=== PATIENT | female | born 1970 | race Caucasian/White ===

== ENCOUNTER → 2016-09-21 16:50 | Outpatient (CLI) | payer MEDICAID ==
[2014-05-18 11:28] VITALS: BMI 26.5
[~2016-09-21 16:50] MED LIST: DEMEROL50 MG PO; ESTRACE2 MG PO; PHENERGAN25 M1 PO; ZANTAC150 MG PO
== END | disposition home or self-care (01) ==
LOC: D.MAMMO 14:00
DX: R92.8 Other abnormal and inconclusive findings on diagnostic imaging of breast (principal)

== ENCOUNTER → 2016-10-22 07:52 | Outpatient (CLI) | payer BC ==
[2014-05-18 11:28] VITALS: BMI 26.5
== END | disposition home or self-care (01) ==
LOC: D.NM 07:52
DX: R10.11 Right upper quadrant pain (principal)

== ENCOUNTER → 2017-04-08 10:23 | Outpatient (CLI) | payer BC ==
[2014-05-18 11:28] VITALS: BMI 26.5
== END | disposition home or self-care (01) ==
LOC: D.RAD 10:23
DX: K21.9 Gastro-esophageal reflux disease without esophagitis (principal)

== ENCOUNTER → 2017-12-09 19:04 | Outpatient (CLI) | payer BC ==
[2014-05-18 11:28] VITALS: BMI 26.5
== END | disposition home or self-care (01) ==
LOC: D.MAMMO 16:00
DX: Z12.31 Encounter for screening mammogram for malignant neoplasm of breast (principal)

== ENCOUNTER 2019-04-06 09:00 | Outpatient (CLI) | payer BC ==
[2014-05-18 11:28] VITALS: BMI 26.5
== END 2019-04-06 10:00 | disposition home or self-care (01) ==
LOC: D.MAMMO 09:00
PROVIDERS: ATTEND Family Medicine
DX: Z12.31 Encounter for screening mammogram for malignant neoplasm of breast (principal)

== ENCOUNTER 2019-09-18 13:00 | Outpatient (CLI) | payer OTHER ==
[2014-05-18 11:28] VITALS: BMI 26.5
== END 2019-09-18 13:30 | disposition home or self-care (01) ==
LOC: D.MAMMO 13:00
PROVIDERS: ATTEND Family Medicine
DX: R92.8 Other abnormal and inconclusive findings on diagnostic imaging of breast (principal); N64.89 Other specified disorders of breast